=== PATIENT | male | born 1990 | race Hispanic/Latino ===

== ENCOUNTER 2018-05-15 22:37 | Emergency (ER) | payer SELFPAY ==
[2018-05-15 23:17] VITALS: PULSE 79; RESP 16; TEMP 98; O2SAT 100
[2018-05-15 23:22] VITALS: BP 128/75
--- NOTE | 2018-05-15 23:37 | C.PDOC ---
History Of Present Illness 27 y/o male presents to ED for complaints of insect bite to right foot that was noticed earlier today. Denies fever, foot pain or any other physical complaints. Time Seen by Provider: 05/15/18 23:27 Chief Complaint (Nursing): Abnormal Skin Integrity History Per: Patient History/Exam Limitations: no limitations Onset/Duration Of Symptoms: Hrs Current Symptoms Are (Timing): Still Present Location Of Injury: Right: Foot Quality Of Symptoms: Itching. denies: Painful Recent travel outside of the [place]: No Past Medical History Reviewed: Historical Data, Nursing Documentation, Vital Signs Vital Signs: Last Vital Signs Temp 98.0 F 05/15/18 23:09 Pulse 79 05/15/18 23:09 Resp 16 05/15/18 23:09 BP 128/75 05/15/18 23:09 Pulse Ox 100 05/16/18 03:33 - Medical History PMH: Bipolar Disorder Family History: States: No Known Family Hx - Social History Hx Alcohol Use: Yes Hx Substance Use: No - Immunization History Hx Influenza Vaccination: No Hx Pneumococcal Vaccination: No Review Of Systems Constitutional: Negative for: Fever, Chills Gastrointestinal: Negative for: Nausea, Vomiting, Abdominal Pain, Diarrhea Musculoskeletal: Negative for: Foot Pain Skin: Positive for: Other (Insect bite on right foot). Negative for: Rash Neurological: Negative for: Weakness, Numbness Physical Exam - Physical Exam Appears: Well, Non-toxic, No Acute Distress Skin: Warm, Dry, Other (small area of localized hyperpigmented skin with small pimple to dorsum of right foot; no swelling of foot; no erythema; No proximal streaking ) Head: Atraumatic, Normacephalic Eye(s): bilateral: Normal Inspection, PERRL, EOMI Oral Mucosa: Moist Neck: Supple Cardiovascular: Rhythm Regular Respiratory: Normal Breath Sounds, No Rales, No Wheezing Extremity: Normal ROM, No Tenderness Extremity: Bilateral: Atraumatic, Normal Color And Temperature, Normal ROM Neurological/Psych: Oriented x3 (Awake and alert), Normal Cognition Gait: Steady ED Course And Treatment O2 Sat by Pulse Oximetry: 100 (RA) Pulse Ox Interpretation: Normal Disposition Counseled Patient/Family Regarding: Diagnosis, Need For Followup - Disposition Disposition: HOME/ ROUTINE Disposition Time: 23:36 Condition: STABLE Additional Instructions: follwo up in clinic or PMD Return to ER if worse Forms: General Discharge Instructions - Clinical Impression Clinical Impression: Skin macule - PA / ASSOCIATE PROFESSOR OF HISTORY / Resident Statement MD/DO has reviewed & agrees with the documentation as recorded. - Scribe Statement The provider has reviewed the documentation as recorded by the Turner Pa All medical record entries made by the Turner were at my direction and personally dictated by me. I have reviewed the chart and agree that the record accurately reflects my personal performance of the history, physical exam, medical decision making, and the department course for this patient. I have also personally directed, reviewed, and agree with the discharge instructions and disposition.
== END 2018-05-16 00:21 | disposition home or self-care (01) ==
LOC: C.ER 22:37
DX: L98.8 Other specified disorders of the skin and subcutaneous tissue (principal)